=== PATIENT | female | born 1975 | race Caucasian/White ===

== ENCOUNTER 2024-06-30 06:21 | Day surgery (SDC) | payer OTHER, SELFPAY | END 2024-06-30 12:01 | disposition home or self-care (01) | LOC: GI 06:21 | PROVIDERS: ATTENDING PHYSICIAN Internal Medicine Gastroenterology | DX: Z12.11 Encounter for screening for malignant neoplasm of colon (principal); K62.1 Rectal polyp; Z86.0100 Personal history of colon polyps, unspecified; K64.8 Other hemorrhoids | CPT/HCPCS: 45380; 88305 ==